=== PATIENT | female | born 1990 | race Caucasian/White ===

== ENCOUNTER 2020-11-12 00:03 | Inpatient (IN) | payer MEDICAID, SELFPAY ==
[2020-11-11 23:23] VITALS: BMI 28.2
[2020-11-11 23:43] VITALS: TEMP 36.6
[2020-11-11 23:44] VITALS: BP 134/81; PULSE 100
[2020-11-12] VITALS (84 sets, daily range): BP systolic 102–156; BP diastolic 59–106; PULSE 73–148; RESP 18–60; TEMP 35.8–37.7; O2SAT 97–100
[2020-11-12] MEDS: ampicillin 2,000 MG in sodium chloride 0.9% (plus) 50 ML 100 MG IV (00:40)
[2020-11-12] MEDS: alum-mag-hydroxide-sime 30 mL UDC PO ×2 (00:41→05:43)
[2020-11-12] MEDS: dextrose 5%-lactated ringers 1,000 ML 125 ML IV (00:42)
[2020-11-12 01:12] LABS: Basophils % 0.4 %; Eosinophils # 0.1 10^3/uL (0.0-0.8); Hematocrit 29.1 % (37.0-47.0); Hemoglobin 9.5 g/dL (11.5-15.3); Lymphocytes # 1.9 10^3/uL (0.8-4.8); Lymphocytes % 17.2 %; Mean Corpuscular HGB Conc 32.6 g/dL (30.0-36.0); Mean Corpuscular Hemoglobin 28.7 pg (28.0-34.0); Mean Corpuscular Volume 87.9 fL (81-99); Mean Platelet Volume 11.3 fL (7.4-10.4); Monocytes # 0.9 10^3/uL (0.2-0.9); Monocytes % 7.8 %; Neutrophils % 72.9 %; Nucleated Red Blood Cells % 0 %; Platelet Count 208 10^3/cmm (130-400); Red Blood Count 3.31 10^6/uL (4.1-5.3)
[2020-11-12 01:34] LABS: Amphetamines Screen Urine Negative (Negative); Barbiturates Screen Urine Negative (Negative); Benzodiazepines Screen Urine Negative (Negative); Cocaine Screen Urine Negative (Negative); Opiate Screen Urine Negative (Negative); PCP Screen Urine Negative (Negative); THC Screen Urine Negative (Negative)
[2020-11-12] MEDS: oxytocin 30 UNIT/500 ML BAG IV (01:47)
[2020-11-12] MEDS: lactated ringers 1,000 ML 999 ML IV (03:15)
[2020-11-12] MEDS: ampicillin 1,000 MG in sodium chloride 0.9% (plus) 50 ML 100 MG IV (03:27)
--- NOTE | 2020-11-12 04:22 | P.ANESASSM_ITS ---
Pre-Anesthetic Assessment Pre-Anesthetic Assessment: Height/Weight: Height 1.68 m Weight 79.379 kg Temp Pulse BP 96.4 F L 73 137/77 11/12/20 02:16 11/12/20 04:03 11/12/20 04:03 Preop Diagnosis: labor Proposed Procedure: epidural Familial anesthetic complications: mom woke up in surgery Was Beta Tasha taken within 24 hours: N/A Was Clonidine taken within 24 hours: N/A Last intake: 2200 Last Intake: 22:00 Social: Social History: No alcohol and No tobacco Exam: Pre-Anes Outpt Exam: alert, oriented x 3, clear to auscultation bilaterally and regular rate & rhythm Airway: Submandibular: WNL Cervical ROM: WNL MP: 2 Pulmonary: Pulmonary: Asthma (UD daily) CV/HEM: CV/HEM: None reported : : None reported Hepatic: Hepatic: None reported GI: GI: GERD (OTC meds) Metabolic: Metabolic: None reported Musc/skel: Musc/skel: None reported Neuropsych: Neuropsych: Anxiety Anesthetic Plan: ASA status: 2 Anesthesia: Eval. for regional block and Regional (specify below) (epidural) Meds/Allergies Current Medications: Current Medications Generic Name Dose Route Start Last Admin Trade Name Freq PRN Reason Stop Dose Admin Al Hydrox/Mg [place] x/Simethicone 30 ml 11/12/20 00:03 11/12/20 00:41 Kejq-Ftg-Xgillou de-Rosalind 30 Ml Udc PO 30 ml Q4H PRN Administration INDIGESTION Dextrose/Lactated Ringer's 1,000 mls @ 125 m ls/hr 11/12/20 00:03 11/12/20 03:15 Dextrose 5%-Lact ated Ringers IV 0 mls/hr .Q8H PRN Infusion labor Ampicillin Sodium 1,000 mg/ 50 mls @ 100 mls/ hr 11/12/20 04:05 11/12/20 03:27 Sodium Chloride IV 100 mls/hr Q4H ROBERTO CARLOS Administration Protocol Oxytocin 30 unit in 500 ml s @ 1 mls/hr 11/12/20 00:15 11/12/20 02:07 Pitocin IV 2 milliunit/min .Q24H ROBERTO CARLOS 2 mls/hr Titration Protocol 1 MILLIUNIT/MIN Lactated Ringer's 1,000 mls @ 999 m ls/hr 11/12/20 00:06 11/12/20 03:15 Lactated Ringers IV 999 mls/hr .Q1H1M PRN Administration See label comment s PFSH Anesthesia Female Reproductive History: : 2 Data Anesthesia CBC & Chem 7: 11/12/20 00:15 Other Labs: Laboratory Results - last 48 hr 11/12/20 11/12/20 00:15 00:25 WBC 11.0 H RBC 3.31 L Hgb 9.5 L Hct 29.1 L MCV 87.9 MCH 28.7 MCHC 32.6 RDW 13.0 Plt Count 208 MPV 11.3 H Neut % (Auto) 72.9 Lymph % (Auto) 17.2 [place] % (Auto) 7.8 Eos % (Auto) 1.0 Baso % (Auto) 0.4 Neut # (Auto) 8.00 H Lymph # (Auto) 1.9 [place] # (Auto) 0.9 Eos # (Auto) 0.1 Baso # (Auto) 0.0 Nucleated RBC % (auto) 0 Nucleated RBCs # 0.0 Urine Opiates Screen Negative Ur Barbiturates Screen Negative Ur Phencyclidine Scrn Negative Ur Amphetamines Screen Negative U Benzodiazepines Scrn Negative Urine Cocaine Screen Negative U Marijuana (THC) Screen Negative Cardiac Studies: No Data to Display
--- NOTE | 2020-11-12 04:55 | ANES.PROC ---
Anesthesia Procedures Procedure/Date: 11/12/20 Epidural: Time Out Performed: Yes Consents Signed: Procedure Consent and NPO Consent Consent: requested by attending/covering physician, from patient, risks and benefits reviewed and patient agrees to proceed Lumbar Level: L3-L4 Epidural position: sitting Epidural procedure: sterile prep of area (betadine), 1% lidocaine to numb the area (3ml), 18 g needle, negative for paresthesia passed, neg for paresthesia, test dose given, 1.5% xylocaine 1:200k epi (5ml), 0.2% Ropivacaine bolus ml (5ml ), placed PCEA, no systemic response, sterile dressing applied, L.U.D. no apparent complications and 0.2% Ropiavacaine @ mls/hr (13ml/hr)
--- NOTE | 2020-11-12 12:16 | P.PCNOB_ITS ---
Delivery Note: Date of delivery: November 12, 2020 Delivery: This is a 30-year-old G2, P1 at 37 weeks 5 days gestation who presented to labor and delivery complaining of spontaneous rupture of membranes. She states that her water broke at about 10 PM and it was clear. She received an epidural for pain management. Her labor stalled out around 5 to 6 cm so she was started on Pitocin. She had a normal spontaneous vaginal delivery of a viable female infant weight 2535 g, 5 pounds 9 ounces, Apgars 9 and 9 over an intact perineum. The infant was suctioned at delivery and placed on the mother's chest. The cord was clamped and cut. The placenta was delivered grossly intact and normal to inspection. There was a first-degree left vaginal laceration that was sutured using 3-0 chromic. There was a small first-degree perineal laceration that did not require suturing. Estimated blood loss 200 mL. Mother and were doing well after delivery. A&P Assessment and plan (1) Normal spontaneous vaginal delivery: Status: Acute (2) Late care complicating : Status: Acute Coding Level of Care Code Acute Election Supervisor for Chg Fwd Diagnoses Normal spontaneous vaginal delivery O80 Late care complicating O09.30
--- NOTE | 2020-11-12 13:31 | PC.NURSE ---
HOTLINE CALL MADE BECAUSE SHE DOES NOT HAVE CUSTODY FOR HER OLDEST CHILD.
[2020-11-12] MEDS: ibuprofen 800 mg tablet PO ×2 (15:10→20:29)
[2020-11-12] MEDS: docusate sodium 100 mg Capsule PO (20:29)
[2020-11-13 04:00] LABS: Hematocrit 25.9 % (37.0-47.0); Hemoglobin 8.2 g/dL (11.5-15.3); Mean Corpuscular HGB Conc 31.7 g/dL (30.0-36.0); Mean Corpuscular Hemoglobin 28.4 pg (28.0-34.0); Mean Corpuscular Volume 89.6 fL (81-99); Platelet Count 200 10^3/cmm (130-400); Red Blood Count 2.89 10^6/uL (4.1-5.3); Red Cell Distribution Width 13.2 % (12.1-15.1)
[2020-11-13 04:33] VITALS: BP 123/88; PULSE 86; TEMP 36.4
[2020-11-13] MEDS: prenatal vitamin Capsule 1 CAP PO (09:13)
[2020-11-13] MEDS: lanolin oint 7 gm 1 APPLIC TOPICAL (09:14)
[2020-11-13] MEDS: ibuprofen 800 mg tablet PO ×2 (09:14→14:36)
[2020-11-13] MEDS: docusate sodium 100 mg Capsule PO (09:14)
[2020-11-13] MEDS: benzocaine-menthol 78 gm Canister 1 SPRAY TOPICAL (09:14)
[2020-11-13 10:38] VITALS: BP 131/76; PULSE 92
--- NOTE | 2020-11-13 12:45 | P.DS_ITS ---
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 She had a normal spontaneous vaginal delivery of a viable female infant. On day #1 she was doing well. She was ambulating, tolerating a regular diet, and was requesting discharge home. Information Peripartum Data: Delivery Method: Vaginal Physical Exam Const: COMMON NORMALS: no acute distress and alert GENERAL APPEARANCE: cooperative and comfortable ORIENTATION/CONSCIOUSNESS: Yes oriented to person Chest: COMMONS NORMALS: normal inspection of the chest GI: COMMON NORMALS: Soft to palpation (Fundus firm U- 2) and non-tender PALPATION: Yes Soft to palpation (Fundus firm U- 2) Extremity: GENERAL: No calf tenderness and No edema Neuro: SENSORIUM/ORIENTATION: Yes alert and Yes oriented to person Urinary Catheter Management^: Gallo: Cath Placed During This Visit: yes Reason for Continuing Indwelling Catheter: Other Urinary Catheter Date of Insertion: 11/12/20 Urinary Catheter Time of Insertion: 05:00 Discharge Data Data Completed and Pending: Labs from last 24 hours 11/13/20 03:52 WBC 12.0 H RBC 2.89 L Hgb 8.2 L Hct 25.9 L MCV 89.6 MCH 28.4 MCHC 31.7 RDW 13.2 Plt Count 200 MPV 11.0 H Vitals: Last Vital Signs Temp 97.5 F L 11/13/20 04:33 Pulse 92 11/13/20 10:38 Resp 18 11/12/20 16:00 BP 131/76 11/13/20 10:38 Pulse Ox 98 11/12/20 05:14 Discharge Plan Discharge Patient Disposition: Home Condition: Stable Prescriptions: Continued + DHA 28 mg iron- 975 mcg-200 mg Combo Pack 1 pkg PO DAILY RF: 0 Iron (ferrous sulfate) 1 tab PO DAILY RF: 0 Discharge Orders: Discharge Order (Routine); Ordered 11/13/20 Ordered By: Kailey Garcia Referrals: Kailey Garcia MD [Physician] - 12/11/20 10:00 am (Your post follow up visit is scheduled for 12/11/2020 at 10:[address] 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
[2020-11-13 15:15] VITALS: TEMP 36.7
[2020-11-13 15:16] VITALS: BP 133/85; PULSE 101
[2020-11-13 16:42] VITALS: RESP 16; TEMP 36.7
[2020-11-13 16:43] VITALS: BP 133/85; PULSE 101; RESP 16; TEMP 36.7
== END 2020-11-13 16:40 | disposition home or self-care (01) | DRG 805 ==
LOC: OPOB 00:54 → OBGYN 00:57
PROVIDERS: Admitting Provider Family Medicine; PCP Nurse Practitioner Family; Visit Provider Family Medicine
DX: O44.43 Low lying placenta NOS or without hemorrhage, third trimester (principal); O75.3 Other infection during labor; Z37.0 Single live birth; O99.02 Anemia complicating childbirth; D64.9 Anemia, unspecified; O70.0 First degree perineal laceration during delivery; Z3A.37 37 weeks gestation of pregnancy; O75.89 Other specified complications of labor and delivery; Z88.0 Allergy status to penicillin; R21 Rash and other nonspecific skin eruption
CPT/HCPCS: 36415; 51702; 59025; 59409; 80306; 83986; 85025; 85027; 98960; J0290